=== PATIENT | female | born 1995 | race Two or more races ===

== ENCOUNTER → 2018-01-07 | Outpatient (CLI) | payer OTHER | LOC: M LRY 19:05 | DX: R52 Pain, unspecified (principal) | CPT/HCPCS: 87186 ==

== ENCOUNTER → 2018-01-07 | Outpatient (REF) | payer OTHER ==
[2018-01-07 22:19] LABS: CHLAMYDIA DNA AMPLIFICATION NEGATIVE (NEGATIVE); GC DNA AMPLIFICATION NEGATIVE (NEGATIVE)
== END ==
LOC: M SFHCLERA 19:06
DX: R10.9 Unspecified abdominal pain (principal); G43.909 Migraine, unspecified, not intractable, without status migrainosus

== ENCOUNTER 2018-01-09 13:45 | Emergency (ER) | payer OTHER ==
[2018-01-09] MEDS: MORPHINE 2 MG/ML 1ML SYRINGE (J2270) IV (15:22)
[2018-01-09] MEDS: NS 1,000 ML IV ×2 (15:22→20:32)
[2018-01-09 15:32] LABS: BASO % 0.1 % (0.0-1.0); EOS % 0.1 % (0.0-3.0); HEMOGLOBIN 12.9 g/dl (12.0-15.5); IMMATURE GRANULOCYTE % 0.5 % (0-3.0); LYMPH # 0.9 10^3/uL (1.5-6.5); LYMPH % 6.5 % (24.0-44.0); MEAN CORPUSCULAR HEMOGLOBIN 29.9 pg (27.0-33.0); MEAN CORPUSCULAR HGB CONC 32.3 g/dl (32.0-36.5); MEAN CORPUSCULAR VOLUME 92.8 fl (80.0-96.0); MONO # 0.9 10^3/uL (0.0-0.8); MONO % 6.5 % (0.0-5.0); NEUTROPHILS # 12.4 10^3/uL (1.8-7.7); NEUTROPHILS % 86.3 % (36.0-66.0); PLATELET COUNT, AUTOMATED 216 10^3/uL (150-450); RED BLOOD COUNT 4.31 10^6/uL (4.00-5.40); RED CELL DISTRIBUTION WIDTH 12.5 % (11.5-14.5); WHITE BLOOD COUNT 14.4 10^3/uL (4.0-10.0)
[2018-01-09 15:44] LABS: INR 1.08; PARTIAL THROMBOPLASTIN TIME 28.9 SECONDS (25.4-37.6); PROTHROMBIN TIME 14.2 SECONDS (12.1-14.4)
[2018-01-09 15:47] LABS: D-DIMER QUANT 828.4 ng/ml (<500)
[2018-01-09 15:57] LABS: CONTROL LINE HCG INT CTR LINE PRESENT; HCG, SERUM QUALITATIVE NEGATIVE (NEGATIVE)
[2018-01-09 16:01] LABS: ALBUMIN 3.7 GM/DL (3.2-5.2); ALBUMIN/GLOBULIN RATIO 1.03 (1.00-1.93); ALKALINE PHOSPHATASE 100 U/L (45-117); ALT/SGPT 24 U/L (12-78); ANION GAP 9 MEQ/L (8-16); AST/SGOT 15 U/L (7-37); BILIRUBIN,DIRECT 0.2 MG/DL (0.0-0.2); BILIRUBIN,TOTAL 0.7 MG/DL (0.2-1.0); BLOOD UREA NITROGEN 10 MG/DL (7-18); CALCIUM LEVEL 8.1 MG/DL (8.5-10.1); CARBON DIOXIDE LEVEL 26 MEQ/L (21-32); CHLORIDE LEVEL 104 MEQ/L (98-107); CK-MB VALUE MASS < 1.0 NG/ML (<3.6); CPK CREATINE PHOSPHOKINASE 58 U/L (26-192); CREATININE FOR GFR 0.74 MG/DL (0.55-1.30); FREE T4 1.04 NG/DL (0.76-1.46); GLOMERULAR FILTRATION RATE > 60.0 (>60); GLUCOSE, FASTING 81 MG/DL (70-100); LIPASE 93 U/L (73-393); MB/CK RELATIVE INDEX 1.72 (< OR =4); NT-PRO BNP 24 PG/ML (<125); POTASSIUM SERUM 3.9 MEQ/L (3.5-5.1); SODIUM LEVEL 139 MEQ/L (136-145); THYROID STIMULATING HORMONE 0.626 uIU/ML (0.358-3.740); TOTAL PROTEIN 7.3 GM/DL (6.4-8.2); TROPONIN I < 0.02 NG/ML (< 0.10)
[2018-01-09] MEDS ORDERED: ISOVUE-370 76% 100ML VIAL (Q9967) As Ordered (16:14)
[2018-01-09 18:52] LABS: KETONE, URINE AUTO RFX NEGATIVE (NEGATIVE); MUCUS, URINE RFX LARGE (NEGATIVE); NITRITE, URINE AUTO RFX NEGATIVE (NEGATIVE); RBC, URINE AUTO RFX 45 /HPF (0-3); SPECIFIC GRAVITY UR AUTO RFX 1.016 (1.002-1.035); SQUAM EPITHELIAL CELL UR AURFX 5 /HPF (0-6); TRANSITIONAL EPITHELIAL AU RFX 1 /HPF
[2018-01-09 18:53] LABS: LEUKOCYTE ESTERASE UR AUTO RFX 3+ (NEGATIVE); WBC, URINE AUTO RFX TNTC /HPF (0-3)
[2018-01-09] MEDS: cefTRIAXone SOD 2 GM in D5W MINI-BAG PLUS 50 ML IV (20:32)
[2018-01-09] MEDS: CEFDINIR 300 MG CAP (OMNICEF) PO (21:56)
== END 2018-01-09 22:03 | disposition home or self-care (01) ==
LOC: M ED 13:45
DX: N12 Tubulo-interstitial nephritis, not specified as acute or chronic (principal); A41.9 Sepsis, unspecified organism
CPT/HCPCS: J0696

== ENCOUNTER 2018-03-27 13:34 | Emergency (ER) | payer OTHER ==
[~2018-03-27] VITALS: Ht 162.6 cm; Wt 70.9 kg
[~2018-03-27 13:34] MED LIST: CEFD1CAP8 PO; NAPR-885 PO
[2018-03-27] MEDS ORDERED: MACR100C43 PO (14:45)
[2018-03-27] MEDS ORDERED: KEFL500C17 PO (14:47)
[2018-03-27 15:02] VITALS: BP 131/82
== END 2018-03-27 15:03 | disposition home or self-care (01) ==
LOC: M ED 13:34
DX: Z32.01 Encounter for pregnancy test, result positive (principal); N30.90 Cystitis, unspecified without hematuria

== ENCOUNTER → 2018-04-09 | Outpatient (REF) | payer OTHER ==
[~2018-04-09] MED LIST changes: +KEFL500C17 PO; +MACR100C43 PO
== END ==
LOC: M SFHCLERA 10:16
PROVIDERS: ATTEND Nurse Practitioner Family
DX: R11.2 Nausea with vomiting, unspecified (principal)

== ENCOUNTER 2018-04-23 02:24 | Emergency (ER) | payer OTHER ==
[~2018-04-23] VITALS: Ht 162.6 cm; Wt 70.5 kg
[2018-04-23] MEDS ORDERED: PRENTAB7 PO (02:30)
[2018-04-23 04:55] LABS: CHLAMYDIA DNA AMPLIFICATION NEGATIVE (NEGATIVE); GC DNA AMPLIFICATION NEGATIVE (NEGATIVE)
--- NOTE | 2018-04-23 05:05 | REPVR ---
EXAM: US First Trimester, Transabdominal EXAM DATE/TIME: 04/23/2018 4:25 AM CLINICAL HISTORY: 22 years old, female; Pain; Other: Abdominal pain; Gestational age or lmp: 8w 4d; ; Additional info: Abd pain, TECHNIQUE: Real-time transabdominal obstetrical ultrasound of the maternal pelvis and a first trimester , less than 14 weeks 0 days, with image documentation. COMPARISON: No relevant prior studies available. FINDINGS: GESTATION: Gestation: Single live intrauterine gestation is seen. crown-rump length measures 1.99 cm corresponding to 8 weeks and 4 days gestation. Yolk sac is seen. Heart rate: heart rate is detected at 171 beats per minutes. BIOMETRY: Estimated gestational age: 8 weeks and 4 days gestation by CR[facility]. MATERNAL: Uterus: Unremarkable. Cervix: Unremarkable. Right adnexa: The right ovary is not visualized. Left adnexa: The left ovary is not visualized. Intraperitoneal: No intraperitoneal free fluid. IMPRESSION: Single live intrauterine gestation corresponding to 8 weeks and 4 days gestation by CRL Electronically signed by: Louie River On 04/23/2018 05:05:00 AM
[2018-04-23] MEDS ORDERED: KEFL500C17 PO (05:22)
[2018-04-23] MEDS ORDERED: metroNIDAZOLE (FLAGYL) 500 MG TAB PO ONE (05:30)
[2018-04-23 06:01] VITALS: BP 128/79
== END 2018-04-23 06:02 | disposition home or self-care (01) ==
LOC: M ED 02:24
DX: O23.41 Unspecified infection of urinary tract in pregnancy, first trimester (principal); O98.311 Other infections with a predominantly sexual mode of transmission complicating pregnancy, first trimester; A59.9 Trichomoniasis, unspecified; Z3A.08 8 weeks gestation of pregnancy